=== PATIENT | female | born 1960 | race Caucasian/White ===

== ENCOUNTER → 2017-02-01 | Outpatient (CLI) | payer BC ==
[~2017-02-01] MED LIST: ATEN-173 PO; CETI10TA10 PO; CHOL100010 PO; ESTR1CRE; IBUP200C14 PO; LEVO88TA3 PO; LIOT5TAB9 PO; LSN5 PO; MULTTAB58 PO
--- NOTE | 2017-02-04 15:02 | MAMMOGRAPHY REPORT ---
BILATERAL DIGITAL SCREENING MAMMOGRAM TOMOSYNTHESIS WITH CAD: 02/01/2017 CLINICAL HISTORY: Routine screening. Patient has no complaints. TECHNIQUE: Breast tomosynthesis in addition to standard 2D mammography was performed. Current study was also evaluated with a Computer Aided Detection (CAD) system. COMPARISON: Comparison is made to exams dated: 02/01/2016 mammogram, 01/26/2015 mammogram, 01/21/2014 mammogram, 01/19/2013 mammogram, 01/14/2012 mammogram, and 01/03/2011 mammogram - [facility]. BREAST COMPOSITION: The tissue of both breasts is extremely dense, which lowers the sensitivity of m ammography. FINDINGS: No suspicious masses, calcifications, or areas of architectural distortion are noted in ei ther breast. There has been no significant interval change compared to prior exams. IMPRESSION: ACR BI-RADS CATEGORY 1: NEGATIVE There is no mammographic evidence of malignancy. A 1 year screening mammogram is recommended. The pa tient will receive written notification of the results. Approximately 10% of breast cancers are not detected with mammography. A negative mammographic report should not delay biopsy if a clinically suggestive mass is present. Yudelka Garza M.D. /:02/01/2017 16:52:37 District Plant Supervisor: Lata Solorio, [facility] letter sent: Normal 1/2 BI-RADS Code: ACR BI-RADS Category 1: Negative
== END | disposition home or self-care (01) ==
LOC: C.MAMM 07:24
PROVIDERS: ATTEND Family Medicine
DX: Z12.31 Encounter for screening mammogram for malignant neoplasm of breast (principal)

== ENCOUNTER 2023-01-18 17:15 | Inpatient (IN) ==
--- NOTE | 2023-01-18 17:23 | ED Triage Note ---
Date of Service January 18, 2023 History of Present Illness This patient was briefly evaluated while in triage. An abbreviated physical exam was performed. This patient is a 62-year-old Female who presents to the ED for evaluation of an abnormal heart beat. She has a history of cardiomyopathy, a-fib, ventricular tachycardia, and CHF. She has an ICD. She states she is having some generalized weakness, occasional chest pains in the center of her chest, and productive cough. Symptoms started earlier today. Physical Exam VITALS: Vitals are noted on the nurse's note and reviewed by myself. GENERAL: This is a 62-year-old female, in no acute distress, well-developed well-nourished. HEART: Tachycardic, irregular rhythm without murmurs gallops or rubs. LUNGS: Clear to auscultation bilaterally without wheezes, rales or rhonchi. NEURO: Patient was alert and oriented to person place and time. Initial orders for labs and / or imaging were placed and patient was placed in the waiting area until a bed is available. Please see further documentation for the full ED course.
[2023-01-18] MEDS ORDERED: MAGNESIUM SULFATE / D5W 1 GM/100 ML BAG IV STA (17:33)
[2023-01-18] MEDS ORDERED: SODIUM CHLORIDE 0.9% 500 ML IV ONE ×2 (17:33→18:43)
[2023-01-18] MEDS ORDERED: METOPROLOL TARTRATE 1 MG/ML VIAL IV STA ×2 (17:33→20:19)
[2023-01-18 18:20] LABS: Basophils # (auto) 0.03 K/uL (0.00-0.20); Basophils % (auto) 0.3 %; Eosinophils # (auto) 0.14 K/uL (0.00-0.50); Eosinophils % (auto) 1.5 %; Hematocrit (blood only) 45.2 % (37.0-47.0); Immature Granulocytes # (auto) 0.03 K/uL (0.01-0.20); Immature Granulocytes % (auto) 0.3 %; Lymphocytes # (auto) 2.19 K/uL (1.20-3.40); Lymphocytes % (auto) 23.4 %; Mean Corpuscular Hemoglobin 30.2 pg (25.0-34.0); Mean Corpuscular Hgb Conc 33.2 g/dL (32.0-36.0); Mean Corpuscular Volume 91.1 fL (80.0-100.0); Monocytes # (auto) 0.78 K/uL (0.11-0.59); Monocytes % (auto) 8.4 %; Neutrophils # (auto) 6.17 K/uL (1.40-6.50); Neutrophils % (auto) 66.1 %; Platelet Count 189 K/uL (130-400); RDW Coefficient of Variation 14.7 % (11.5-14.5); RDW Standard Deviation 49.6 fL (36.4-46.3); Red Blood Count 4.96 M/uL (4.20-5.40); White Blood Count 9.34 K/ul (4.8-10.8)
--- NOTE | 2023-01-18 18:33 | XRay Report ---
XR chest 1V portable CLINICAL HISTORY: Chest pain, arrhythmia TECHNIQUE: Single frontal radiograph of the chest was obtained. Comparison: Comparison is made to chest radiograph 02/28/2021 FINDINGS: Lines and tubes are stable. Cardiomegaly is noted. The lungs are clear. No evidence of pleural effusi on or pneumothorax. IMPRESSION: No acute chest disease. Cardiomegaly is noted. ACT 112: Negative or not required by law. Electronically signed by: Matias Lynch M.D. 01/18/2023 6:31 PM
[2023-01-18 18:39] LABS: Alanine Aminotransferase 20 U/L (7-52); Albumin Globulin Ratio 1.5 (0.9-2); Albumin Level 4.7 gm/dl (3.4-5.0); Alkaline Phosphatase 66 U/L (34-104); Bilirubin,Total 0.8 mg/dl (0.2-1.0); Blood Urea Nitrogen 15 mg/dl (6-23); Calcium 9.7 mg/dl (8.6-10.3); Carbon Dioxide 26 mmol/L (21-32); Chloride 102 mmol/L (98-107); Creatinine Clr Calc Pharmacy 64.2 ml/min; Est GFR (African American) 76.4 ml/min; Est GFR (Non-African American) 65.9 ml/min; Globulin 3.1 gm/dl (2.5-4.0); Glucose 109 mg/dl (70-99(Fasting)); Total Protein 7.8 gm/dl (6.0-8.3); Troponin I High Sensitivity 5.2 pg/ml (0-14)
[2023-01-18 18:46] LABS: Thyroid Stimulating Hormone 1.959 uIu/ml (0.300-4.500)
--- NOTE | 2023-01-18 18:46 | Emergency Department Note ---
Impression & Plan Atrial fibrillation with rapid ventricular response ED Provider Note NAME: SARAH BELTRAN AGE: 62 SEX: F : 1960 ARRIVES VIA: Walk-In INFORMANT: Patient, ED PROVIDER(S): Javier Rodriguez DO CHIEF COMPLAINT: Palpitations HPI: The patient is a 62-year-old female who presented to the emergency department for an evaluation of palpitations. The patient noted palpitations over the last few days intermittently but they became constant today. She has a history of paroxysmal atrial fibrillation. The patient denies having any chest pain or difficulty breathing at this time. She has been compliant with her outpatient medications which does include an anticoagulant. The patient denies having any headaches. She has had no leg swelling. ROS: See above HPI for pertinent positives & negatives. A total of 10 systems reviewed and were otherwise negative. PAST MEDICAL HISTORY: See Below PAST SURGICAL HISTORY: See Below FAMILY HISTORY: See Below SOCIAL HISTORY: See Below HOME MEDICATIONS: See Below ALLERGIES: See Below VITALS: See Below PHYSICAL EXAMINATION: GENERAL: Patient is awake alert in no acute distress patient is resting comfortably and showing no signs of anxiety EYES: The conjunctivae are clear. The pupils are round and reactive. EARS, NOSE, MOUTH AND THROAT: The nose is without any evidence of any deformity. Mucous membranes are moist. Tongue is midline. NECK: The neck is nontender and supple. RESPIRATORY: Normal respiratory effort is noted there is no evidence of wheezing rhonchi or rales CARDIOVASCULAR: Tachycardic and irregular heart sounds were noted to auscultation. There is no definite murmur. GASTROINTESTINAL: The abdomen is soft. Abdomen is nontender. MUSCULOSKELETAL/EXTREMITIES: There is no evidence of gross deformity full range of motion is noted in the hips and shoulders. SKIN: There is no obvious evidence of any rash. There are no petechiae, pallor or cyanosis noted. NEUROLOGIC: Patient is awake alert and oriented x3 MEDICAL DECISION MAKING: The patient is a 62-year-old female who presented to the emergency department for an evaluation of palpitations. The patient has a history of atrial fibrillation which is paroxysmal. The patient is on a blood thinner. She also takes rate control medications including metoprolol. The patient states that she has been compliant with her outpatient medication regimen. She was treated with IV fluids as well as IV Lopressor in the emergency department. Her heart r ate did improve. Her symptoms mildly improved. She did have her pacemaker interrogated. She was having episodes of atrial fibrillation with RVR. I discussed the patient's laboratory and radiographic studies with her. [facility] have a greed to evaluate the patient in the emergency department for further management Triage Nursing notes reviewed. Prior medical records reviewed. Pacemaker interrogation was reviewed. Vital Signs: reviewed and remarkable for tachycardia. Differential diagnosis: Premature contractions, electrolyte abnormality, cardiac dysrhythmia, thyroid dysfunction, pulmonary embolism, infection, gastrointestinal, as well as other pathologies. ER treatment provided: See below Diagnostics interpreted by me: ECG: EKG was obtained in the emergency department. My interpretation is atrial fibrillation with RVR at [address] segment abnormalities were noted. There were no PVCs noted. This was compared to a tracing from February 28, 2021. Paced rhythm has been replaced with atrial fibrillation. Cardiac Monitoring: An order was placed for continuous cardiac monitoring. The monitor shows a rate of 115 bpm with atrial fibrillation and RVR. Laboratory studies: As stated above and show below. Imaging studies: See below. Radiographic imaging was reviewed by myself Consultation(s): I discussed this case with Dr. Hamm who was [facility] ED COURSE: Procedures: none Critical Care: I have personally spent greater than 35 minutes of critical care time in the direct management of this patient. This includes bedside care, interpretation of diagnostic studies, and testing, discussion with consultants, patient, and family members, and other required patient management activities. This 35 minutes is in excess of all separately billable procedures. Past Med/Surg History Medical History Arthritis knees, lower back Atrial fibrillation currently on eliquis and statin Cardiomyopathy w/weakness in heart muscle; f/u db pool History of COVID-19 05/2021, home test (+) and clinic test (-), not hosp; runny nose, cough, hoarseness in voice, body aches, loss taste, chills, congestion>resolved Hx of migraines ocular Nausea and vomiting after administration of anesthetic agent Pacemaker pacemaker/defibrillator placed at [facility], 02/2021; f/u DB Pool Stroke 08/2019, in [place], "due to a blood clot">no residual symptoms>currently on statin Ventricular tachycardia Surgical History History of cardiac cath at age 37, no stents>"to see if I had a any problems with my heart due to the ventricular tachycardia and cardiomyopathy" History of endometrial ablation History of esophagogastroduodenoscopy (EGD) History of loop recorder placed to "see if I had A-Fib", placed at [facility]; removed when pacemaker placed 02/2021 History of surgery 08/2019, 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; hosp in [place] Hx of colonoscopy Hx of dilation and curettage Social History Smoking Status: Never smoker Second Hand Exposure: Yes (hx-as a child); Do You Dip or Chew Tobacco: No; Hx Alcohol Use: Yes Hx Substance Use: No Preferred Language: Belarusian Communication Ability: Effective Equipment Lead Required: No Beliefs That Will Affect Care: None Current Living Situation: Spouse Feels Safe at Home: Yes Assistive Devices: Contacts and Glasses Allergies Allergies Allergy/AdvReac Type Severity Reaction Status Date / Time Sulfa (Sulfonamide Allergy Mild HIVES Verified 06/07/22 08:24 Antibiotics) gluten Allergy Gastrointestinal Verified 06/07/22 08:24 Upset Home Meds Home Medications Medication Instructions Recorded Confirmed liothyronine 5 mcg tablet 5 mcg PO QAM 10/27/19 01/18/23 metoprolol succinate 100 mg 100 mg PO QAM 10/27/19 01/18/23 tablet,extended release 24 hr rosuvastatin 10 mg tablet (Crestor) 10 mg PO HS 10/27/19 01/18/23 apixaban 5 mg tablet (Eliquis) 5 mg PO BID 02/28/21 01/18/23 sacubitril 24 mg-valsartan 26 mg 1 tab PO BID 02/28/21 01/18/23 tablet (Entresto) cetirizine 10 mg tablet (Zyrtec) 10 mg PO HS 06/01/22 01/18/23 cholecalciferol (vitamin D3) 25 25 mcg PO QPM 06/01/22 01/18/23 mcg (1,000 unit) capsule (Vitamin D3) coenzyme Q10 100 mg capsule (Co 100 mg PO QAM 06/01/22 01/18/23 Q-10) levothyroxine 75 mcg tablet 75 mcg PO QAM 06/01/22 01/18/23 metoprolol succinate 25 mg 25 mg PO QPM 06/01/22 01/18/23 tablet,extended release 24 hr multivitamin 1 tab PO QPM 06/01/22 01/18/23 furosemide 20 mg tablet 20 mg PO QAM 01/18/23 01/18/23 spironolactone 25 mg tablet 12.5 mg PO . MON,WED,Sat01/18/23 01/18/23 triamcinolone acetonide 55 mcg 1 spray intranasal DAILY PRN 01/18/23 01/18/23 nasal spray aerosol (Nasacort) Allergy Symptoms Results & Data (ED) Vital Signs Vital Signs - 24 hr 01/18/23 17:21 01/18/23 17:41 01/18/23 18:00 Temperature 36.6 C Temperature Source Temporal Artery Scan Pulse Rate 150 H 122 H 142 H Respiratory Rate 18 Respiratory Effort / Characteristics Non-Labored Respiratory Depth Normal Respiratory Pattern Blood Pressure 120/108 H 105/80 Blood Pressure [Left Arm] Blood Pressure Mean 112 Blood Pressure Mean [Left Arm] Pulse Oximetry 99 Oxygen Delivery Method Room Air Sepsis Recent Fever Within 48 Hours No Sepsis New/Unexplained Change in Mental Status No Sepsis Action Taken by Nursing No Action Required 01/18/23 18:23 01/18/23 19:11 01/18/23 21:07 Temperature Temperature Source Pulse Rate 99 H 113 H Respiratory Rate 20 Respiratory Effort / Characteristics Non-Labored Spontaneous Respiratory Depth Normal Respiratory Pattern Regular Blood Pressure 109/75 Blood Pressure [Left Arm] 106/72 Blood Pressure Mean Blood Pressure Mean [Left Arm] 83 Pulse Oximetry 98 Oxygen Delivery Method Room Air Sepsis Recent Fever Within 48 Hours Sepsis New/Unexplained Change in Mental Status Sepsis Action Taken by [facility] Medications Current Medication List: was personally reviewed by me Laboratory Data Attestation: I reviewed the patient's lab results. 01/18/23 17:35 01/18/23 17:35 Lab Results 01/18/23 01/18/23 01/18/23 Range/Units 17:35 17:35 19:18 WBC 9.34 (4.8-10.8) K/ul RBC 4.96 (4.20-5.40) M/uL Hgb 15.0 (12.0-16.0) g/dl Hct 45.2 (37.0-47.0) % MCV 91.1 (80.0-100.0) fL MCH 30.2 (25.0-34.0) pg MCHC 33.2 (32.0-36.0) g/dL RDW Std Deviation 49.6 H (36.4-46.3) fL RDW Coeff of [place] 14.7 H (11.5-14.5) % Plt Count 189 (130-400) K/uL MPV 13.0 H (9.4-12.4) fL Immature Gran % (Auto) 0.3 % Neut % (Auto) 66.1 % Lymph % (Auto) 23.4 % [place] % (Auto) 8.4 % Eos % (Auto) 1.5 % Baso % (Auto) 0.3 % Neut # (Auto) 6.17 (1.40-6.50) K/uL Lymph # (Auto) 2.19 (1.20-3.40) K/uL [place] # (Auto) 0.78 H (0.11-0.59) K/uL Eos # (Auto) 0.14 (0.00-0.50) K/uL Baso # (Auto) 0.03 (0.00-0.20) K/uL Immature Gran # (Auto) 0.03 (0.01-0.20) K/uL Sodium TNP 135 L Potassium TNP 3.8 Chloride 102 (98-107) mmol/L Carbon Dioxide 26 (21-32) mmol/L Anion Gap TNP BUN 15 (6-23) mg/dl Creatinine 0.94 (0.6-1.2) mg/dl Est Cr Clr Drug Dosing 64.2 ml/min Est GFR ( Amer) 76.4 ml/min Est GFR (Non-Af Amer) 65.9 ml/min BUN/Creatinine Ratio 16.0 (10-20) Glucose 109 H (70-99(Fasting)) mg/dl Calcium 9.7 (8.6-10.3) mg/dl Magnesium TNP 2.4 Total Bilirubin 0.8 (0.2-1.0) mg/dl AST TNP 39 ALT 20 (7-52) U/L Alkaline Phosphatase 66 (34-104) U/L Troponin I High Sens 5.2 (0-14) pg/ml Total Protein 7.8 (6.0-8.3) gm/dl Albumin 4.7 (3.4-5.0) gm/dl Globulin 3.1 (2.5-4.0) gm/dl Albumin/Globulin Ratio 1.5 (0.9-2) TSH 1.959 (0.300-4.500) uIu/ml Administered Medications Discontinued Medications Sodium Chloride (Nss) 500 mls @ 999 mls/hr IV .Q31M ONE Stop: 01/18/23 18:03 Last Infusion: 01/18/23 18:23 Dose: 0 mls/hr Documented By: Admin: 01/18/23 17:43 Dose: 999 mls/hr Documented By: LIOR Magnesium Sulfate/Dextrose (Magnesium Sulfate / D5w) 1 gm in 100 mls @ 100 mls/hr IV NOW STA Stop: 01/18/23 18:32 Last Infusion: 01/18/23 21:09 Dose: 0 mls/hr Documented By: Admin: 01/18/23 17:43 Dose: 100 mls/hr Documented By: LIOR Sodium Chloride (Nss) 500 mls @ 999 mls/hr IV .Q31M ONE Stop: 01/18/23 19:13 Last Infusion: 01/18/23 21:09 Dose: 0 mls/hr Documented By: Admin: 01/18/23 19:07 Dose: 999 mls/hr Documented By: ROE Metoprolol Tartrate (Metoprolol Tartrate 1 Mg/Ml Vial) 5 mg IV NOW STA Stop: 01/18/23 17:34 Last Admin: 01/18/23 17:41 Dose: 5 mg Documented By: LIOR Metoprolol Tartrate (Metoprolol Tartrate 1 Mg/Ml Vial) 2.5 mg IV NOW STA Stop: 01/18/23 20:20 Last Admin: 01/18/23 21:07 Dose: 2.5 mg Documented By: MUNA Imaging Data Attestation: I personally reviewed and interpreted this imaging study as follows: My Impression: 1 view chest x-ray was obtained in the emergency department. My interpretation is no free air or definite infiltrate, final report below Radiologist's Impression: Chest X-Ray 01/18/23 17:23 XR chest 1V portable CLINICAL HISTORY: Chest pain, arrhythmia TECHNIQUE: Single frontal radiograph of the chest was obtained. Comparison: Comparison is made to chest radiograph 02/28/2021 FINDINGS: Lines and tubes are stable. Cardiomegaly is noted. The lungs are clear. No evidence of pleural effusion or pneumothorax. IMPRESSION: No acute chest disease. Cardiomegaly is noted. ACT 112: Negative or not required by law. Electronically signed by: Matias Lynch M.D. 01/18/2023 6:31 PM Discharge Plan Visit Data Chief Complaint: Tachycardia Stated Complaint: HEART RACING, WEAKNEESS ED Provider: Javier Rodriguez Discharge Problem: Atrial fibrillation with rapid ventricular response Patient Disposition: Being Evaluated by Hospitalist Forms Stand Alone Forms: My [facility] Prescriptions Prescriptions: No Action metoprolol succinate 100 mg Tablet Extended Release 24 Hr 100 mg PO QAM liothyronine 5 mcg Tablet 5 mcg PO QAM rosuvastatin [Crestor] 10 mg Tablet 10 mg PO HS multivitamin Tablet 1 tab PO QPM cetirizine [Zyrtec] 10 mg Tablet 10 mg PO HS levothyroxine 75 mcg Tablet 75 mcg PO QAM metoprolol succinate 25 mg Tablet Extended Release 24 Hr 25 mg PO QPM Patient Comments: after dinner cholecalciferol (vitamin D3) [Vitamin D3] 25 mcg (1,000 unit) Capsule 25 mcg PO QPM Patient Comments: w/lunch coenzyme Q10 [Co Q-10] 100 mg Capsule 100 mg PO QAM Eliquis 5 mg Tablet 5 mg PO BID Entresto 24-26 mg Tablet 1 tab PO BID spironolactone 25 mg tablet 12.5 mg PO . SAT,SAT,SAT Rx Instructions: saturday and saturday triamcinolone acetonide [Nasacort] 55 mcg Aerosol,[place] 1 spray INTRANASAL DAILY PRN (Reason: Allergy Symptoms) Rx Instructions: administer into each nostril furosemide 20 mg tablet 20 mg PO QAM Referrals Referrals: Linda English, [Primary Care Provider] -
[2023-01-18 20:23] LABS: Magnesium 2.4 mg/dl (1.7-2.4); Potassium 3.8 mmol/L (3.5-5.1)
--- NOTE | 2023-01-19 00:09 | History & Physical Report ---
Date of Service January 18, 2023 Assessment & Plan (1) Atrial fibrillation with rapid ventricular response: Plan: 62-year-old female with past medical history significant for hypothyroidism, allergic rhinitis, idiopathic cardiomyopathy, paroxysmal ventricular tachy cardia, paroxysmal atrial fibrillation, history of cryptogenic stroke, pulmonary hypertension, chronic systolic CHF, frequent PVCs, nonsustained ventricular tachycardia, celiac disease, eczema, history of allergic bilateral conjunctivitis, presents with palpitations and found to be in rapid A-fib. Rapid A-fib/a flutter History of paroxysmal atrial fibrillation Improved with IV Lopressor We will continue with home p.o. Lopressor IV Lopressor as needed Continue home Eliquis Monitoring telemetry Serial cardiac enzymes Echo Consult cardiology in a.m. Chronic systolic CHF Echo done November 2022 showed EF of less than 20% Follow echo Monitor for volume overload Continue home Lasix, spironolactone, Entresto, metoprolol succinate Cardiology consulted History of paroxysmal ventricular tachycardia History of frequent PVCs History of nonsustained ventricular tachycardia On metoprolol succinate We will follow labs Hypothyroidism On Synthyroid TSH is okay Hyperlipidemia On statin DVT prophylaxis On Eliquis Disposition Telemetry floor Full code History of Present Illness Chief Complaint: Rapid A-fib Primary Care Provider: Linda English DO 62-year-old female with past medical history significant for hypothyroidism, allergic rhinitis, idiopathic cardiomyopathy, paroxysmal ventricular tachycardia, paroxysmal atrial fibrillation, history of cryptogenic stroke, pulmonary hypertension, chronic systolic CHF, frequent PVCs, nonsustained ventricular tachycardia, celiac disease, eczema, history of allergic bilateral conjunctivitis, presents with palpitations and found to be in rapid A-fib. Patient says today she had for about 3 hours of palpitations. [place] somewhat dizzy. [place] tapping on her chest. No chest pain or shortness of breath. Ambulating okay. Today morning she had cough bringing some whitish phlegm. Denies any fevers. No headache. No blurred visions. Currently no runny nose or sore throat. No abdominal pain. Bowel movements are irregular. Micturating okay. Currently resting comfortably. Past medical history. As mentioned above Past surgical history. Colonoscopy. EGD. EGD with biopsy. Hysteroscopy and endometrial ablation. Implanted loop recorder. Social history. . No smoking. Alcohol occasional. No drug use. Family history. Mother had endometrial cancer. CHF. High cholesterol. Father had high cholesterol. Hypertension. Eczema. Diabetes. Arthritis. Sister has arthritis. Sister has celiac disease. Allergies Allergy/AdvReac Type Severity Reaction Status Date / Time Sulfa (Sulfonamide Allergy Mild HIVES Verified 06/07/22 08:24 Antibiotics) gluten Allergy Gastrointestinal Verified 06/07/22 08:24 Upset Home Medications Medication Instructions Recorded Confirmed Type liothyronine 5 mcg tablet 5 mcg PO QAM 10/27/19 01/18/23 History metoprolol succinate 100 mg 100 mg PO QAM 10/27/19 01/18/23 History tablet,extended release 24 hr rosuvastatin 10 mg tablet (Crestor) 10 mg PO HS 10/27/19 01/18/23 History apixaban 5 mg tablet (Eliquis) 5 mg PO BID 02/28/21 01/18/23 History sacubitril 24 mg-valsartan 26 mg 1 tab PO BID 02/28/21 01/18/23 History tablet (Entresto) cetirizine 10 mg tablet (Zyrtec) 10 mg PO HS 06/01/22 01/18/23 History cholecalciferol (vitamin D3) 25 25 mcg PO QPM 06/01/22 01/18/23 History mcg (1,000 unit) capsule (Vitamin D3) coenzyme Q10 100 mg capsule (Co 100 mg PO QAM 06/01/22 01/18/23 History Q-10) levothyroxine 75 mcg tablet 75 mcg PO QAM 06/01/22 01/18/23 History metoprolol succinate 25 mg 25 mg PO QPM 06/01/22 01/18/23 History tablet,extended release 24 hr multivitamin 1 tab PO QPM 06/01/22 01/18/23 History furosemide 20 mg tablet 20 mg PO QAM 01/18/23 01/18/23 History spironolactone 25 mg tablet 12.5 mg PO . MON,WED,FRI 01/18/23 01/18/23 History triamcinolone acetonide 55 mcg 1 spray intranasal DAILY PRN 01/18/23 01/18/23 History nasal spray aerosol (Nasacort) Allergy Symptoms Past Med/Surg History Medical History Arthritis knees, lower back Atrial fibrillation currently on eliquis and statin Cardiomyopathy w/weakness in heart muscle; f/u kayleigh db vazquez History of COVID-19 05/2021, home test (+) and clinic test (-), not hosp; runny nose, cough, hoarseness in voice, body aches, loss taste, chills, congestion>resolved Hx of migraines ocular Nausea and vomiting after administration of anesthetic agent Pacemaker pacemaker/defibrillator placed at [facility], 02/2021; f/u Kayleigh DB Vazquez Stroke 08/2019, in [place], "due to a blood clot">no residual symptoms>currently on statin Ventricular tachycardia Surgical History History of cardiac cath at age 37, no stents>"to see if I had a any problems with my heart due to the ventricular tachycardia and cardiomyopathy" History of endometrial ablation History of esophagogastroduodenoscopy (EGD) History of loop recorder placed to "see if I had A-Fib", placed at [facility]; removed when pacemaker placed 02/2021 History of surgery 08/2019, 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; hosp in [place] Hx of colonoscopy Hx of dilation and curettage Social History Smoking Status: Never smoker Second Hand Exposure: Yes (hx-as a child); Do You Dip or Chew Tobacco: No; Hx Alcohol Use: Yes Hx Substance Use: No Preferred Language: Irish Communication Ability: Effective Ground Worker Required: No Beliefs That Will Affect Care: None Current Living Situation: Spouse Other Information That Helps Us Care for You: No Feels Safe at Home: Yes Safety Concerns: Feels Safe At This Time Assistive Devices: None Review of Systems Review of Systems: All systems reviewed & are unremarkable except as noted in HPI & below Physical Exam Physical Exam: General- Not in distress. Head- atraumatic Eyes- PERRL. ENT- oropharynx clear Neck- supple, no JVD. Lungs- clear to auscultation mild bibasilar crackles, no wheezing Heart- irregular rhythm;tachycardia no murmur, no gallop. Abdomen- normal bowel sounds, soft, nontender, no distension Extremities- no pretibial edema, no erythema seen. Neuro- alert, oriented x 3; PERRL, EOMI; no facial palsy; no dysarthria;moves extremities. Skin- warm & dry Results & Data Results & Data Vital Signs (Past 12 Hours) Vital Signs Temp Pulse Pulse Resp BP BP Pulse Ox 01/18/23 22:23 83 16 109/72 95 01/18/23 21:59 104 H 01/18/23 21:07 113 H 109/75 01/18/23 19:11 20 106/72 98 01/18/23 18:23 99 H 01/18/23 18:00 142 H 01/18/23 17:41 122 H 105/80 01/18/23 17:21 36.6 C 150 H 18 120/108 H 99 O2 Del Method 01/18/23 22:23 Room Air 01/18/23 21:59 01/18/23 21:07 01/18/23 19:11 Room Air 01/18/23 18:23 01/18/23 18:00 01/18/23 17:41 01/18/23 17:21 Room Air Diagnostic Findings Laboratory Results WBC 9.34 K/ul (4.8-10.8) 01/18/23 17:35 RBC 4.96 M/uL (4.20-5.40) 01/18/23 17:35 Hgb 15.0 g/dl (12.0-16.0) 01/18/23 17:35 Hct 45.2 % (37.0-47.0) 01/18/23 17:35 MCV 91.1 fL (80.0-100.0) 01/18/23 17:35 MCH 30.2 pg (25.0-34.0) 01/18/23 17:35 MCHC 33.2 g/dL (32.0-36.0) 01/18/23 17:35 RDW Std Deviation 49.6 fL (36.4-46.3) H 01/18/23 17:35 RDW Coeff of [place] 14.7 % (11.5-14.5) H 01/18/23 17:35 Plt Count 189 K/uL (130-400) 01/18/23 17:35 MPV 13.0 fL (9.4-12.4) H 01/18/23 17:35 Immature Gran % (Auto) 0.3 % 01/18/23 17:35 Neut % (Auto) 66.1 % 01/18/23 17:35 Lymph % (Auto) 23.4 % 01/18/23 17:35 [place] % (Auto) 8.4 % 01/18/23 17:35 Eos % (Auto) 1.5 % 01/18/23 17:35 Baso % (Auto) 0.3 % 01/18/23 17:35 Neut # (Auto) 6.17 K/uL (1.40-6.50) 01/18/23 17:35 Lymph # (Auto) 2.19 K/uL (1.20-3.40) 01/18/23 17:35 [place] # (Auto) 0.78 K/uL (0.11-0.59) H 01/18/23 17:35 Eos # (Auto) 0.14 K/uL (0.00-0.50) 01/18/23 17:35 Baso # (Auto) 0.03 K/uL (0.00-0.20) 01/18/23 17:35 Immature Gran # (Auto) 0.03 K/uL (0.01-0.20) 01/18/23 17:35 Sodium 135 mmol/L (136-145) L 01/18/23 19:18 Potassium 3.8 mmol/L (3.5-5.1) 01/18/23 19:18 Chloride 102 mmol/L (98-107) 01/18/23 17:35 Carbon Dioxide 26 mmol/L (21-32) 01/18/23 17:35 Anion Gap TNP 01/18/23 17:35 BUN 15 mg/dl (6-23) 01/18/23 17:35 Creatinine 0.94 mg/dl (0.6-1.2) 01/18/23 17:35 Est Cr Clr Drug Dosing 64.2 ml/min 01/18/23 17:35 Est GFR ( Amer) 76.4 ml/min 01/18/23 17:35 Est GFR (Non-Af Amer) 65.9 ml/min 01/18/23 17:35 BUN/Creatinine Ratio 16.0 (10-20) 01/18/23 17:35 Glucose 109 mg/dl (70-99(Fasting)) H 01/18/23 17:35 Calcium 9.7 mg/dl (8.6-10.3) 01/18/23 17:35 Magnesium 2.4 mg/dl (1.7-2.4) 01/18/23 19:18 Total Bilirubin 0.8 mg/dl (0.2-1.0) 01/18/23 17:35 AST 39 U/L (13-39) 01/18/23 19:18 ALT 20 U/L (7-52) 01/18/23 17:35 Alkaline Phosphatase 66 U/L (34-104) 01/18/23 17:35 Troponin I High Sens 5.2 pg/ml (0-14) 01/18/23 17:35 Total Protein 7.8 gm/dl (6.0-8.3) 01/18/23 17:35 Albumin 4.7 gm/dl (3.4-5.0) 01/18/23 17:35 Globulin 3.1 gm/dl (2.5-4.0) 01/18/23 17:35 Albumin/Globulin Ratio 1.5 (0.9-2) 01/18/23 17:35 TSH 1.959 uIu/ml (0.300-4.500) 01/18/23 17:35 Impressions Chest X-Ray 01/18/23 17:23 XR chest 1V portable CLINICAL HISTORY: Chest pain, arrhythmia TECHNIQUE: Single frontal radiograph of the chest was obtained. Comparison: Comparison is made to chest radiograph 02/28/2021 FINDINGS: Lines and tubes are stable. Cardiomegaly is noted. The lungs are clear. No evidence of pleural effusion or pneumothorax. IMPRESSION: No acute chest disease. Cardiomegaly is noted. ACT 112: Negative or not required by law. Electronically signed by: Matias Lynch M.D. 01/18/2023 6:31 PM ECG Additional Comments: A flutter with variable AV block with PVCs at a rate of 144. Left axis deviation. Code Status & VTE Plan VTE Prophylaxis Plan VTE Prophylaxis will be ordered: Yes
[2023-01-19] MEDS ORDERED: POLYETHYLENE (MIRALAX) 17 GM PACK PO PRN (01:05)
[2023-01-19] MEDS ORDERED: ACETAMINOPHEN 325 MG TAB PO PRN (01:05)
[2023-01-19] MEDS ORDERED: NITROGLYCERIN SL 0.4 MG/TAB TAB SL PRN (01:05)
[2023-01-19] MEDS ORDERED: METOPROLOL TARTRATE 1 MG/ML VIAL IV PRN (01:05)
[2023-01-19] MEDS ORDERED: FLUTICASONE PROPIONATE NA SPR 16 GM BTL PRN (02:14)
[2023-01-19] MEDS: LIOTHYRONINE SODIUM 5 MCG TAB PO SCH (05:20)
[2023-01-19] MEDS: LEVOTHYROXINE SODIUM 75 MCG TABLET PO SCH (05:20)
[2023-01-19 06:33] LABS: Basophils # (auto) 0.02 K/uL (0.00-0.20); Basophils % (auto) 0.4 %; Eosinophils # (auto) 0.09 K/uL (0.00-0.50); Eosinophils % (auto) 1.7 %; Hematocrit (blood only) 38.4 % (37.0-47.0); Hemoglobin 12.7 g/dl (12.0-16.0); Immature Granulocytes # (auto) 0.01 K/uL (0.01-0.20); Immature Granulocytes % (auto) 0.2 %; Lymphocytes # (auto) 1.48 K/uL (1.20-3.40); Lymphocytes % (auto) 27.7 %; Mean Corpuscular Hemoglobin 30.2 pg (25.0-34.0); Mean Corpuscular Hgb Conc 33.1 g/dL (32.0-36.0); Mean Corpuscular Volume 91.2 fL (80.0-100.0); Monocytes # (auto) 0.49 K/uL (0.11-0.59); Monocytes % (auto) 9.2 %; Neutrophils # (auto) 3.25 K/uL (1.40-6.50); Neutrophils % (auto) 60.8 %; Platelet Count 144 K/uL (130-400); RDW Coefficient of Variation 14.9 % (11.5-14.5); RDW Standard Deviation 49.9 fL (36.4-46.3); Red Blood Count 4.21 M/uL (4.20-5.40); White Blood Count 5.34 K/ul (4.8-10.8)
[2023-01-19 06:50] LABS: BUN Creatinine Ratio 14.1 (10-20); Calcium 8.6 mg/dl (8.6-10.3); Creatinine Clr Calc Pharmacy 77.4 ml/min; Est GFR (African American) 95.8 ml/min; Est GFR (Non-African American) 82.6 ml/min; Magnesium 2.2 mg/dl (1.7-2.4); Potassium 3.9 mmol/L (3.5-5.1)
[2023-01-19 06:56] LABS: Troponin I High Sensitivity 7.1 pg/ml (0-14)
--- NOTE | 2023-01-19 07:40 | Electrocardiogram Report ---
Test Reason : Blood Pressure : / mmHG Vent. Rate : 144 BPM Atrial Rate : 366 BPM P-R Int : 000 ms QRS Dur : 090 ms QT Int : 308 ms P-R-T Axes : 000 -34 093 degrees QTc Int : 476 ms Likely atrial fibrillation Left axis deviation Poor R wave progression, consider anterior NC vs. lead placement vs. LVH Abnormal ECG When compared with ECG of 28-FEB-2021 13:39, Atrial fibrillation has replaced Electronic atrial pacemaker Vent. rate has increased BY 91 BPM QRS axis Shifted left Confirmed by Nathaniel Warner ([id number]) on 01/19/2023 7:40:31 AM Referred By: REFERRED SELF Confirmed By:Oswaldo Warner
--- NOTE | 2023-01-19 07:52 | Electrocardiogram Report ---
Test Reason : Blood Pressure : / mmHG Vent. Rate : 100 BPM Atrial Rate : 100 BPM P-R Int : 192 ms QRS Dur : 088 ms QT Int : 368 ms P-R-T Axes : 034 -45 083 degrees QTc Int : 474 ms Sinus rhythm with Premature atrial complexes Possible Left atrial enlargement Left anterior fascicular block Nonspecific ST abnormality Abnormal ECG When compared with ECG of 18-JAN-2023 17:30, (unconfirmed) Sinus rhythm has replaced likely atrial fibrillation ST no longer elevated in Inferior leads T wave amplitude has decreased in Inferior leads T wave inversion more evident in Lateral leads Confirmed by Nathaniel Warner ([id number]) on 01/19/2023 7:51:50 AM Referred By: REFERRED SELF Confirmed By:Oswaldo Warner
[2023-01-19] MEDS ORDERED: NON-FORMULARY MEDICATION (Coenzyme Q10 [Co Q-10] 100 mg Capsule) PO SCH (09:00)
[2023-01-19] MEDS ORDERED: METOPROLOL SUCC 50MG EXT REL TAB PO SCH (09:00)
[2023-01-19] MEDS ORDERED: FUROSEMIDE 20 MG TAB PO SCH (09:00)
[2023-01-19] MEDS: APIXABAN 5 MG TABLET PO SCH ×2 (09:07→21:05)
[2023-01-19] MEDS: VALSARTAN/SACUBITRIL 26/24MG TAB PO SCH ×3 (11:10→21:05)
--- NOTE | 2023-01-19 11:20 | Cardiology Consultation ---
Date of Consultation January 19, 2023 Assessment & Plan (1) Atrial fibrillation with rapid ventricular response: (2) Acute on chronic heart failure with reduced ejection fraction and diastolic dysfunction: (3) Frequent PVCs: Plan Complex 62-year-old female presents with paroxysmal atrial fibrillation with rapid ventricular response. Recent echocardiogram demonstrating significant decline in left ventricular systolic function, LVEF < 20%. Previous echocardiogram dated 02/06/2021 reporting LVEF 20-24%. Patient did not tolerate atrial fibrillation with evidence of mild acute on chronic decompensated systolic heart failure. Additional concerns regarding frequent PVCs and decline in left ventricular systolic function. Discussed rhythm control strategy. Dofetilide versus amiodarone considered. Baseline QTc greater than 440ms which is a contraindication to dofetilide. Recommend oral amiodarone 200 mg 3 times daily. 20 mg IV Lasix x1 now. Titrate spironolactone to 25 mg daily. Reduce oral metoprolol succinate to 50 mg daily. Although patient carries history of nonischemic/idiopathic cardiomyopathy dating back many years, with recent decline in LV function a repeat ischemic evaluation is warranted. Consideration for outpatient Lexiscan nuclear stress test versus repeat cardiac catheterization as hospital course progresses. History of Present Illness Reason for Consultation: Rapid atrial fibrillation Requesting Physician: Dr. Hamm Attending Physician: Ariana Jean-Baptiste MD History of Present Illness 62-year-old female with a history of nonischemic cardiomyopathy paroxysmal atrial fibrillation, frequent PVCs, nonsustained ventricular tachycardia presented to the ER with palpitations. ECG demonstrating rapid atrial fibrillation. Recent echocardiogram performed in the [facility] system in the midst of a acute COVID-19 infection 12/12/2022 demonstrating a decline in LV systolic function with a left ventricular ejection fraction less than 20% and mild pulmonary hypertension. Defibrillator implantation March 03, [address] Cordon. Furosemide titrated to 20 mg daily on January 07 with addition of spironolactone 12.5 mg daily. Dose of spironolactone was subsequently reduced to 12.5 mg on Saturday, Saturday, and Fridays01/17/2023. Patient seen and examined at the bedside. Converted to sinus rhythm with PACs at approximately 12:40 PM. Reports abdominal bloating and isolate episode of orthopnea last month. Function capacity and exercise tolerance has declined. Intermittent pedal edema reported although improved since admission. Patient recently referred for electrophysiology follow-up due to frequent PVCs and worsening left ventricular systolic function. Allergies Allergy/AdvReac Type Severity Reaction Status Date / Time Sulfa (Sulfonamide Allergy Mild HIVES Verified 06/07/22 08:24 Antibiotics) gluten Allergy Gastrointestinal Verified 06/07/22 08:24 Upset Home Medications Medication Instructions Recorded Confirmed Type liothyronine 5 mcg tablet 5 mcg PO QAM 10/27/19 01/18/23 History metoprolol succinate 100 mg 100 mg PO QAM 10/27/19 01/18/23 History tablet,extended release 24 hr rosuvastatin 10 mg tablet (Crestor) 10 mg PO HS 10/27/19 01/18/23 History apixaban 5 mg tablet (Eliquis) 5 mg PO BID 02/28/21 01/18/23 History sacubitril 24 mg-valsartan 26 mg 1 tab PO BID 02/28/21 01/18/23 History tablet (Entresto) cetirizine 10 mg tablet (Zyrtec) 10 mg PO HS 06/01/22 01/18/23 History cholecalciferol (vitamin D3) 25 25 mcg PO QPM 06/01/22 01/18/23 History mcg (1,000 unit) capsule (Vitamin D3) coenzyme Q10 100 mg capsule (Co 100 mg PO QAM 06/01/22 01/18/23 History Q-10) levothyroxine 75 mcg tablet 75 mcg PO QAM 06/01/22 01/18/23 History metoprolol succinate 25 mg 25 mg PO QPM 06/01/22 01/18/23 History tablet,extended release 24 hr multivitamin 1 tab PO QPM 06/01/22 01/18/23 History furosemide 20 mg tablet 20 mg PO QAM 01/18/23 01/18/23 History spironolactone 25 mg tablet 12.5 mg PO . MON,WED,FRI 01/18/23 01/18/23 History triamcinolone acetonide 55 mcg 1 spray intranasal DAILY PRN 01/18/23 01/18/23 History nasal spray aerosol (Nasacort) Allergy Symptoms Patient History Medical History Arthritis knees, lower back Atrial fibrillation currently on eliquis and statin Cardiomyopathy w/weakness in heart muscle; f/u kayleigh db vazquez History of COVID-19 05/2021, home test (+) and clinic test (-), not hosp; runny nose, cough, hoarseness in voice, body aches, loss taste, chills, congestion>resolved Hx of migraines ocular Nausea and vomiting after administration of anesthetic agent Pacemaker pacemaker/defibrillator placed at [facility], 02/2021; f/u Kayleigh DB Vazquez Stroke 08/2019, in [place], "due to a blood clot">no residual symptoms>currently on statin Ventricular tachycardia Surgical History History of cardiac cath at age 37, no stents>"to see if I had a any problems with my heart due to the ventricular tachycardia and cardiomyopathy" History of endometrial ablation History of esophagogastroduodenoscopy (EGD) History of loop recorder placed to "see if I had A-Fib", placed at [facility]; removed when pacemaker placed 02/2021 History of surgery 08/2019, 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; hosp in [place] Hx of colonoscopy Hx of dilation and curettage Social History Smoking Status: Never smoker Second Hand Exposure: Yes (hx-as a child); Do You Dip or Chew Tobacco: No; Hx Alcohol Use: Yes Hx Substance Use: No Preferred Language: Haitian Communication Ability: Effective Commissioned Sales Associate Required: No Beliefs That Will Affect Care: None Current Living Situation: Spouse Other Information That Helps Us Care for You: No Feels Safe at Home: Yes Safety Concerns: Feels Safe At This Time Assistive Devices: None Review of Systems Review of Systems: All systems reviewed & are unremarkable except as noted in Subjective Physical Exam Constitutional: well nourished; no acute distress Respiratory: normal respiratory effort; no respiratory distress and no labored breathing Auscultation: + rales (Bases bilateral); no rhonchi and no wheezes Cardiovascular: Rate/Rhythm: regular rate and regular rhythm Heart Sounds: normal S1 and normal S2; no murmur Vessels: + JVD and radial pulses present Extremities: no edema Gastrointestinal (Abdomen): Inspection/Auscultation: normal bowel sounds; abdomen not distended Percussion/Palpation: abdomen soft; abdomen nontender, no guarding and abdomen not rigid Neurologic: CN's II-XI intact bilaterally and moves all extremities Results & Data Vital Signs (Past 12 Hours) Vital Signs Temp Pulse Pulse Resp BP Pulse Ox O2 Del Method 01/19/23 11:08 36.7 C 102 H 20 107/75 96 Room Air 01/19/23 09:17 95 H 97/63 L 01/19/23 07:28 36.8 C 91 H 18 93/63 L 97 Room Air 01/19/23 01:52 84 01/19/23 01:08 36.7 C 104 H 18 103/66 98 Room Air 01/19/23 00:39 97 H Room Air Laboratory Results Cardiac Enzymes 01/18/23 01/18/23 01/19/23 Range/Units 17:35 19:18 05:15 AST TNP 39 Troponin I High Sens 5.2 7.1 (0-14) pg/ml 01/19/23 Range/Units 10:54 AST Troponin I High Sens 8.2 (0-14) pg/ml CBC 01/18/23 01/19/23 Range/Units 17:35 05:15 WBC 9.34 5.34 (4.8-10.8) K/ul RBC 4.96 4.21 (4.20-5.40) M/uL Hgb 15.0 12.7 (12.0-16.0) g/dl Hct 45.2 38.4 (37.0-47.0) % Plt Count 189 144 (130-400) K/uL Neut # (Auto) 6.17 3.25 (1.40-6.50) K/uL Lymph # (Auto) 2.19 1.48 (1.20-3.40) K/uL [place] # (Auto) 0.78 H 0.49 (0.11-0.59) K/uL Eos # (Auto) 0.14 0.09 (0.00-0.50) K/uL Baso # (Auto) 0.03 0.02 (0.00-0.20) K/uL Comprehensive Metabolic Panel 01/18/23 01/18/23 01/19/23 Range/Units 17:35 19:18 05:15 Sodium TNP 135 L 140 Potassium TNP 3.8 3.9 Chloride 102 108 H (98-107) mmol/L Carbon Dioxide 26 26 (21-32) mmol/L BUN 15 11 (6-23) mg/dl Creatinine 0.94 0.78 (0.6-1.2) mg/dl Glucose 109 H 92 (70-99(Fasting)) mg/dl Calcium 9.7 8.6 (8.6-10.3) mg/dl AST TNP 39 ALT 20 (7-52) U/L Alkaline Phosphatase 66 (34-104) U/L Total Protein 7.8 (6.0-8.3) gm/dl Albumin 4.7 (3.4-5.0) gm/dl Intake and Output 01/18/23 01/19/23 01/19/23 22:59 06:59 14:59 Intake Total 1100 / 1100 Balance 1100 / 1100 Intake: IV 1100 / 1100 Magnesium Sulfate / D5w 1 gm In 100 / 100 100 ml @ 100 mls/hr IV NOW STA Rx#:[id number] Sodium Chloride 0.9% 500 ml @ 1000 / 1000 999 mls/hr IV .Q31M ONE Rx#: [id number] Other: Other Intake Source npo Weight 66.8 kg 70.2 kg Weight Measurement Method Chair Scale Built in [facility] Diagnostic Findings 2D echocardiogram report 12/12/2022: The left ventricular cavity size is severely enlarged. Diffuse left ventricular myocardial thinning is present. There is severe diffuse left ventricular hypokinesis. The qualitative LV ejection fraction is <20% (severely reduced). The left atrium is severely enlarged. The left ventricular diastolic function is severely abnormal (grade III). Mild mitral regurgitation is present. Mild pulmonary hypertension is present. The estimated pulmonary artery systolic pressure is 45 mm Hg. Compared to the report of the previous study dated 02/06/2021, the ejection fraction was estimated to be 20-24% at that time. Severe left ventricular chamber dilatation is now present. ECG Additional Comments: ECG: Sinus rhythm with premature atrial complexes, QTc 474 ms, nonspecific ST abnormality.
[2023-01-19] MEDS ORDERED: FUROSEMIDE INJ 20 MG/2 ML VIAL IV ONE (13:28)
[2023-01-19] MEDS ORDERED: AMIODARONE 200 MG TAB PO ONE (13:31)
--- NOTE | 2023-01-19 14:06 | Hospitalist Progress Note ---
Date of Service January 19, 2023 Assessment & Plan (1) Atrial fibrillation with rapid ventricular response: Plan: 62-year-old female with past medical history significant for hypothyroidism, allergic rhinitis, idiopathic cardiomyopathy, paroxysmal ventricular tachy cardia, paroxysmal atrial fibrillation, history of cryptogenic stroke, pulmonary hypertension, chronic systolic CHF, frequent PVCs, nonsustained ventricular tachycardia, celiac disease, eczema, history of allergic bilateral conjunctivitis, presents with palpitations and found to be in rapid A-fib. Rapid A-fib/a flutter History of paroxysmal atrial fibrillation Improved with IV Lopressor Continue with home p.o. Lopressor, IV Lopressor as needed Continue home Eliquis Echo with decrease in EF to <20% currently Telemetry monitoring Consult cardiology-appreciate recs Chronic systolic CHF Echo done November 2022 showed EF of less than 20% Appreciate cardiology recs: -started on amiodarone -Given Lasix -increased dose of spironolactone to 25mg daily -decreased dose of metoprolol to 100mg daily Hypotension Pt currently hypotensive Cardiology holding AM metoprolol on 01/20 History of paroxysmal ventricular tachycardia History of frequent PVCs History of nonsustained ventricular tachycardia On metoprolol succinate as above Hypothyroidism Continue home thyroid meds Stable Hyperlipidemia On statin DVT prophylaxis:On Eliquis Diet: Gluten free, HH CODE STATUS: Full code Dispo: PT/OT orders placed, but likely home at discharge Admission and Anticipated Discharge Date Admission Date: January 18, 2023 Subjective Pt seen in the AM with at bedside. States that the cough was most bothersome, started a few months ago, producing foamy sputum. States that her hands are swollen and cannot take her rings off. Review of Systems Review of Systems: All systems reviewed & are unremarkable except as noted in Subjective Physical Exam Physical Exam: General: Alert, oriented. No acute distress Skin: No noted rashes or bruises Psych: Appropriate mood and affect Neuro: No gross deficits HEENT: NC/AT CV: Irregular rate and rhythm Resp: Breath sounds with some coarseness bilaterally, no increased effort of breathing. No crackles Abdomen: Soft, nontender, nondistended. Extremities: Edema noted in hands bilaterally Results & Data Results & Data Vital Signs (Past 12 Hours) Vital Signs Temp Pulse Resp BP Pulse Ox O2 Del Method 01/19/23 08:00 Room Air 01/19/23 11:08 36.7 C 102 H 20 107/75 96 Room Air 01/19/23 09:17 95 H 97/63 L 01/19/23 07:28 36.8 C 91 H 18 93/63 L 97 Room Air
--- NOTE | 2023-01-19 16:52 | Electrocardiogram Report ---
Test Reason : Blood Pressure : / mmHG Vent. Rate : 088 BPM Atrial Rate : 088 BPM P-R Int : 200 ms QRS Dur : 090 ms QT Int : 382 ms P-R-T Axes : 063 -55 097 degrees QTc Int : 462 ms Normal sinus rhythm Left anterior fascicular block possible Lateral infarct , age undetermined Nonspecific ST abnormality Abnormal ECG When compared with ECG of 19-JAN-2023 05:26, Premature atrial complexes are no longer Present Nonspecific T wave abnormality now evident in Inferior leads Confirmed by Nathaniel Warner ([id number]) on 01/19/2023 4:52:39 PM Referred By: REFERRED SELF Confirmed By:Oswaldo Warner
[2023-01-19] MEDS: AMIODARONE 200 MG TAB PO SCH (17:24)
[2023-01-19] MEDS ORDERED: METOPROLOL SUCC 25MG EXT REL TAB PO SCH (21:00)
[2023-01-19] MEDS: CETIRIZINE HCL 10 MG TABLET PO SCH (21:05)
[2023-01-19] MEDS: CHOLECALCIFEROL 1,000 UNITS 25 MCG TAB PO SCH (21:05)
[2023-01-19] MEDS: ROSUVASTATIN CALCIUM 10 MG TAB PO SCH (21:05)
[2023-01-19] MEDS: MULTIVITAMIN TAB PO SCH (21:05)
[2023-01-20] MEDS: LEVOTHYROXINE SODIUM 75 MCG TABLET PO SCH (05:36)
[2023-01-20] MEDS: LIOTHYRONINE SODIUM 5 MCG TAB PO SCH (05:36)
[2023-01-20 06:38] LABS: Basophils # (auto) 0.03 K/uL (0.00-0.20); Basophils % (auto) 0.4 %; Eosinophils # (auto) 0.12 K/uL (0.00-0.50); Eosinophils % (auto) 1.5 %; Hematocrit (blood only) 44.6 % (37.0-47.0); Hemoglobin 14.8 g/dl (12.0-16.0); Immature Granulocytes # (auto) 0.01 K/uL (0.01-0.20); Immature Granulocytes % (auto) 0.1 %; Lymphocytes # (auto) 1.71 K/uL (1.20-3.40); Lymphocytes % (auto) 21.8 %; Mean Corpuscular Hgb Conc 33.2 g/dL (32.0-36.0); Mean Corpuscular Volume 90.5 fL (80.0-100.0); Monocytes # (auto) 0.69 K/uL (0.11-0.59); Monocytes % (auto) 8.8 %; Neutrophils # (auto) 5.27 K/uL (1.40-6.50); Neutrophils % (auto) 67.4 %; Platelet Count 139 K/uL (130-400); RDW Coefficient of Variation 14.8 % (11.5-14.5); RDW Standard Deviation 49.2 fL (36.4-46.3); Red Blood Count 4.93 M/uL (4.20-5.40); White Blood Count 7.83 K/ul (4.8-10.8)
[2023-01-20 06:59] LABS: Albumin Globulin Ratio 1.6 (0.9-2); Albumin Level 3.9 gm/dl (3.4-5.0); BUN Creatinine Ratio 13.9 (10-20); Bilirubin,Total 1.2 mg/dl (0.2-1.0); Calcium 9.2 mg/dl (8.6-10.3); Creatinine Clr Calc Pharmacy 59.8 ml/min; Est GFR (African American) 70.1 ml/min; Est GFR (Non-African American) 60.5 ml/min; Globulin 2.5 gm/dl (2.5-4.0); Phosphorus 4.3 mg/dl (2.5-4.9); Potassium 4.2 mmol/L (3.5-5.1); Total Protein 6.4 gm/dl (6.0-8.3)
[2023-01-20] MEDS: VALSARTAN/SACUBITRIL 26/24MG TAB PO SCH ×2 (08:32→21:03)
[2023-01-20] MEDS: AMIODARONE 200 MG TAB PO SCH ×3 (08:32→17:07)
[2023-01-20] MEDS: APIXABAN 5 MG TABLET PO SCH ×2 (08:32→21:03)
[2023-01-20] MEDS: SPIRONOLACTONE 12.5 MG TAB PO SCH (08:32)
--- NOTE | 2023-01-20 08:48 | Cardiology Progress Note ---
Date of Service January 20, 2023 Assessment & Plan (1) Atrial fibrillation with rapid ventricular response: (2) Acute on chronic heart failure with reduced ejection fraction and diastolic dysfunction: (3) Frequent PVCs: Plan Complex 62-year-old female presents with paroxysmal atrial fibrillation with rapid ventricular response. Recent echocardiogram demonstrating significant decline in left ventricular systolic function, LVEF < 20%. Previous echocardiogram dated 02/06/2021 reporting LVEF 20-24%. Patient did not tolerate atrial fibrillation with evidence of mild acute on chronic decompensated systolic heart failure. Additional concerns regarding frequent PVCs and decline in left ventricular systolic function. Discussed rhythm control strategy. Dofetilide versus amiodarone considered. Baseline QTc greater than 440ms which is a contraindication to dofetilide. Continue oral amiodarone 200 mg 3 times daily. Reduce Toprol-XL to 50 mg daily. Continue spironolactone 12.5 mg daily, Entresto daily, and furosemide 3 days/week. Repeat basic metabolic panel in a.m. Daily ECG while loading amiodarone. Continue telemetry monitoring. Admission and Anticipated Discharge Date Admission Date: January 18, 2023 Subjective Patient seen and examined at the bedside. Persistent asymptomatic hypotension noted. Patient received evening medications. Diuresed more than 1 L last evening per discussion with nursing. Electrolytes and renal function stable. Denies lightheadedness or dizziness. No chest discomfort or unusual shortness of breath. Telemetry reveals sinus rhythm with PACs. Review of Systems Review of Systems: All systems reviewed & are unremarkable except as noted in Subjective Physical Exam Constitutional: well nourished; no acute distress Respiratory: normal respiratory effort; no respiratory distress and no labored breathing Auscultation: no rales, no rhonchi and no wheezes Cardiovascular: Rate/Rhythm: regular rate and regular rhythm Heart Sounds: normal S1 and normal S2; no murmur Vessels: radial pulses present; no JVD Extremities: no edema Gastrointestinal (Abdomen): Inspection/Auscultation: normal bowel sounds; abdomen not distended Percussion/Palpation: abdomen soft; abdomen nontender, no guarding and abdomen not rigid Neurologic: CN's II-XI intact bilaterally and moves all extremities Results & Data Vital Signs (Past 12 Hours) Vital Signs Temp Pulse Pulse Resp BP Pulse Ox O2 Del Method 01/20/23 07:15 36.5 C 88 18 89/59 L 98 Room Air 01/20/23 02:42 36.6 C 61 18 89/61 L 98 Room Air 01/19/23 22:54 86 01/19/23 22:44 36.8 C 81 18 89/59 L 97 Room Air Laboratory Results Cardiac Enzymes 01/19/23 01/20/23 Range/Units 10:54 05:57 AST 23 (13-39) U/L Troponin I High Sens 8.2 (0-14) pg/ml CBC 01/20/23 Range/Units 05:57 WBC 7.83 (4.8-10.8) K/ul RBC 4.93 (4.20-5.40) M/uL Hgb 14.8 (12.0-16.0) g/dl Hct 44.6 (37.0-47.0) % Plt Count 139 (130-400) K/uL Neut # (Auto) 5.27 (1.40-6.50) K/uL Lymph # (Auto) 1.71 (1.20-3.40) K/uL [place] # (Auto) 0.69 H (0.11-0.59) K/uL Eos # (Auto) 0.12 (0.00-0.50) K/uL Baso # (Auto) 0.03 (0.00-0.20) K/uL Comprehensive Metabolic Panel 01/20/23 Range/Units 05:57 Sodium 138 (136-145) mmol/L Potassium 4.2 (3.5-5.1) mmol/L Chloride 104 (98-107) mmol/L Carbon Dioxide 29 (21-32) mmol/L BUN 14 (6-23) mg/dl Creatinine 1.01 (0.6-1.2) mg/dl Glucose 100 H (70-99(Fasting)) mg/dl Calcium 9.2 (8.6-10.3) mg/dl AST 23 (13-39) U/L ALT 14 (7-52) U/L Alkaline Phosphatase 56 (34-104) U/L Total Protein 6.4 (6.0-8.3) gm/dl Albumin 3.9 (3.4-5.0) gm/dl Intake and Output 01/19/23 01/20/23 01/20/23 22:59 06:59 14:59 Intake Total 980 / 1230 250 / 1230 Output Total 1974 Balance / -745 - Intake: Oral 980 / 1230 250 / 1230 Output: Urine 1974 Other: Weight 70.2 kg Weight Measurement Method Built in [facility]
[2023-01-20] MEDS ORDERED: SPIRONOLACTONE 25 MG TAB PO SCH (09:00)
--- NOTE | 2023-01-20 10:29 | Hospitalist Progress Note ---
Date of Service January 20, 2023 Assessment & Plan (1) Atrial fibrillation with rapid ventricular response: Plan: 62-year-old female with past medical history significant for hypothyroidism, allergic rhinitis, idiopathic cardiomyopathy, paroxysmal ventricular tachy cardia, paroxysmal atrial fibrillation, history of cryptogenic stroke, pulmonary hypertension, chronic systolic CHF, frequent PVCs, nonsustained ventricular tachycardia, celiac disease, eczema, history of allergic bilateral conjunctivitis, presents with palpitations and found to be in rapid A-fib. Rapid A-fib/a flutter History of paroxysmal atrial fibrillation Improved with IV Lopressor On po Lopressor, IV Lopressor as needed Continue home Eliquis Echo with decrease in EF to <20% currently Telemetry monitoring Consult cardiology-appreciate recs -currently adjusting med doses in setting of hypotension Chronic systolic CHF Echo done November 2022 showed EF of less than 20% Appreciate cardiology recs: -started on amiodarone -Given Lasix -adjusting doses and schedule of spironolactone, entresto, lasix and metoprolol in the setting of hypotension Hypotension Pt currently hypotensive Cardiology adjusting medications as noted above History of paroxysmal ventricular tachycardia History of frequent PVCs History of nonsustained ventricular tachycardia On metoprolol succinate as above Hypothyroidism Continue home thyroid meds Stable Hyperlipidemia On statin DVT prophylaxis:On Eliquis Diet: Gluten free, CODE STATUS: Full code Dispo: PT/OT orders placed, but likely home at discharge Admission and Anticipated Discharge Date Admission Date: January 18, 2023 Subjective Pt seen in the AM, at bedside. Noted that she still had swelling but it was improving. Denied dizziness, chest pain or SOB. Acute episodes of hypotension overnight. Review of Systems Review of Systems: All systems reviewed & are unremarkable except as noted in Subjective Physical Exam Physical Exam: General: Alert, oriented. No acute distress Skin: No noted rashes or bruises Psych: Appropriate mood and affect Neuro: No gross deficits HEENT: NC/AT CV: Irregular rate and rhythm Resp: Breath sounds with some coarseness bilaterally, no increased effort of breathing. No crackles Abdomen: Soft, nontender, nondistended. Extremities: Edema noted in hands bilaterally, improved Results & Data Results & Data Vital Signs (Past 12 Hours) Vital Signs Temp Pulse Pulse Resp BP Pulse Ox O2 Del Method 01/20/23 10:04 84 01/20/23 09:55 Room Air 01/20/23 07:15 36.5 C 88 18 89/59 L 98 Room Air 01/20/23 02:42 36.6 C 61 18 89/61 L 98 Room Air 01/19/23 22:54 86 01/19/23 22:44 36.8 C 81 18 89/59 L 97 Room Air
[2023-01-20] MEDS: METOPROLOL SUCC 50MG EXT REL TAB PO SCH (11:31)
--- NOTE | 2023-01-20 12:44 | Electrocardiogram Report ---
Test Reason : Blood Pressure : / mmHG Vent. Rate : 083 BPM Atrial Rate : 083 BPM P-R Int : 190 ms QRS Dur : 092 ms QT Int : 394 ms P-R-T Axes : 032 038 164 degrees QTc Int : 462 ms Normal sinus rhythm with sinus arrhythmia Possible Left atrial enlargement Low voltage QRS Possible Inferior infarct , age undetermined Abnormal ECG When compared with ECG of 19-JAN-2023 14:14, Left anterior fascicular block is no longer Present Borderline criteria for Inferior infarct are now Present Confirmed by Nathaniel Warner ([id number]) on 01/20/2023 12:44:04 PM Referred By: REFERRED SELF Confirmed By:Oswaldo Warner
[2023-01-20] MEDS: MULTIVITAMIN TAB PO SCH (21:03)
[2023-01-20] MEDS: CHOLECALCIFEROL 1,000 UNITS 25 MCG TAB PO SCH (21:04)
[2023-01-20] MEDS: ROSUVASTATIN CALCIUM 10 MG TAB PO SCH (21:04)
[2023-01-20] MEDS: CETIRIZINE HCL 10 MG TABLET PO SCH (21:04)
[2023-01-21] MEDS: LEVOTHYROXINE SODIUM 75 MCG TABLET PO SCH (05:56)
[2023-01-21] MEDS: LIOTHYRONINE SODIUM 5 MCG TAB PO SCH (05:56)
[2023-01-21 06:36] LABS: Basophils # (auto) 0.04 K/uL (0.00-0.20); Basophils % (auto) 0.7 %; Eosinophils # (auto) 0.15 K/uL (0.00-0.50); Eosinophils % (auto) 2.5 %; Hematocrit (blood only) 39.6 % (37.0-47.0); Hemoglobin 13.7 g/dl (12.0-16.0); Immature Granulocytes # (auto) 0.01 K/uL (0.01-0.20); Immature Granulocytes % (auto) 0.2 %; Lymphocytes # (auto) 1.82 K/uL (1.20-3.40); Lymphocytes % (auto) 30.5 %; Mean Corpuscular Hemoglobin 30.2 pg (25.0-34.0); Mean Corpuscular Hgb Conc 34.6 g/dL (32.0-36.0); Mean Corpuscular Volume 87.4 fL (80.0-100.0); Mean Platelet Volume 12.8 fL (9.4-12.4); Monocytes # (auto) 0.63 K/uL (0.11-0.59); Monocytes % (auto) 10.6 %; Neutrophils # (auto) 3.32 K/uL (1.40-6.50); Neutrophils % (auto) 55.5 %; Platelet Count 164 K/uL (130-400); RDW Coefficient of Variation 14.6 % (11.5-14.5); RDW Standard Deviation 47.2 fL (36.4-46.3); Red Blood Count 4.53 M/uL (4.20-5.40); White Blood Count 5.97 K/ul (4.8-10.8)
[2023-01-21 07:06] LABS: Albumin Globulin Ratio 1.6 (0.9-2); Albumin Level 3.6 gm/dl (3.4-5.0); BUN Creatinine Ratio 20.2 (10-20); Bilirubin,Total 0.8 mg/dl (0.2-1.0); Calcium 8.8 mg/dl (8.6-10.3); Creatinine Clr Calc Pharmacy 64.2 ml/min; Est GFR (African American) 76.4 ml/min; Est GFR (Non-African American) 65.9 ml/min; Globulin 2.3 gm/dl (2.5-4.0); Magnesium 1.9 mg/dl (1.7-2.4); Phosphorus 4.7 mg/dl (2.5-4.9); Potassium 3.9 mmol/L (3.5-5.1); Total Protein 5.9 gm/dl (6.0-8.3)
[2023-01-21] MEDS: AMIODARONE 200 MG TAB PO SCH ×2 (08:27→12:11)
[2023-01-21] MEDS: METOPROLOL SUCC 50MG EXT REL TAB PO SCH (08:27)
[2023-01-21] MEDS: APIXABAN 5 MG TABLET PO SCH (08:28)
[2023-01-21] MEDS: VALSARTAN/SACUBITRIL 26/24MG TAB PO SCH (08:28)
[2023-01-21] MEDS: SPIRONOLACTONE 12.5 MG TAB PO SCH (08:28)
[2023-01-21] MEDS ORDERED: SPIRONOLACTONE 12.5 MG TAB PO SCH (09:00)
--- NOTE | 2023-01-21 11:16 | Cardiology Progress Note ---
Date of Service January 21, 2023 Assessment & Plan (1) Atrial fibrillation with rapid ventricular response: (2) Acute on chronic heart failure with reduced ejection fraction and diastolic dysfunction: (3) Frequent PVCs: Plan Complex 62-year-old female presents with paroxysmal atrial fibrillation with rapid ventricular response. Echocardiogram demonstrating significant decline in left ventricular systolic function, LVEF < 20%. Previous echocardiogram dated 02/06/2021 reporting LVEF 20-24%. Patient did not tolerate atrial fibrillation with evidence of mild acute on chronic decompensated systolic heart failure. Additional concerns regarding frequent PVCs and decline in left ventricular systolic function. Discussed rhythm control strategy. Dofetilide versus amiodarone considered. Baseline QTc greater than 440ms which is a contraindication to dofetilide. Reduce amiodarone to 200 mg twice daily. This may be reduced to 200 mg once daily in approximately 2 weeks. Repeat ECG today demonstrating normal QT interval. Continue Toprol-XL 50 mg in the a.m. (reduced from 125mg daily) Continue Entresto and daily spironolactone as ordered. Recommend oral furosemide 20 mg on Saturday, Saturday, and Saturday. Repeat basic metabolic panel in 1 week as outpatient. Discussed further ischemic evaluation. Patient agreeable to cardiac catheterization, however, received Eliquis this morning. Recommend holding Eliquis for 4 doses prior to procedure. She will be discharged home today with plans for cardiac catheterization on or Saturday. Instructed to hold a.m. medications prior to catheterization due to borderline resting hypotension. All questions answered to patient's satisfaction. I will facilitate appointment with advanced heart failure specialist at [facility] upon discharge. Admission and Anticipated Discharge Date Admission Date: January 18, 2023 Subjective Patient seen examined the bedside. Feeling well today. Denies chest pain or shortness of breath. Telemetry reveals PVCs and rare 3-4 beat salvos of nonsustained VT. Remains borderline hypotensive. No lightheadedness, dizziness, syncope, or near syncope. No recurrent atrial fibrillation over the past 48 hours. Review of Systems Review of Systems: All systems reviewed & are unremarkable except as noted in Subjective Physical Exam Constitutional: well nourished; no acute distress Respiratory: normal respiratory effort; no respiratory distress and no labored breathing Auscultation: no rales, no rhonchi and no wheezes Cardiovascular: Rate/Rhythm: regular rate and regular rhythm Heart Sounds: normal S1 and normal S2; no murmur Vessels: radial pulses present; no JVD Extremities: no edema Gastrointestinal (Abdomen): Inspection/Auscultation: normal bowel sounds; abdomen not distended Percussion/Palpation: abdomen soft; abdomen nontender, no guarding and abdomen not rigid Neurologic: CN's II-XI intact bilaterally and moves all extremities Results & Data Vital Signs (Past 12 Hours) Vital Signs Temp Pulse Pulse Resp BP BP Pulse Ox 01/21/23 08:15 92 H 01/21/23 07:22 36.6 C 88 19 92/62 L 97 01/21/23 03:00 36.6 C 80 16 85/53 L 97 01/21/23 01:00 Pulse Ox O2 Del Method O2 Del Method 01/21/23 08:15 01/21/23 07:22 Room Air 01/21/23 03:00 Room Air 01/21/23 01:00 97 Room Air Laboratory Results Cardiac Enzymes 01/21/23 Range/Units 05:54 AST 16 (13-39) U/L CBC 01/21/23 Range/Units 05:54 WBC 5.97 (4.8-10.8) K/ul RBC 4.53 (4.20-5.40) M/uL Hgb 13.7 (12.0-16.0) g/dl Hct 39.6 (37.0-47.0) % Plt Count 164 (130-400) K/uL Neut # (Auto) 3.32 (1.40-6.50) K/uL Lymph # (Auto) 1.82 (1.20-3.40) K/uL [place] # (Auto) 0.63 H (0.11-0.59) K/uL Eos # (Auto) 0.15 (0.00-0.50) K/uL Baso # (Auto) 0.04 (0.00-0.20) K/uL Comprehensive Metabolic Panel 01/21/23 Range/Units 05:54 Sodium 139 (136-145) mmol/L Potassium 3.9 (3.5-5.1) mmol/L Chloride 107 (98-107) mmol/L Carbon Dioxide 26 (21-32) mmol/L BUN 19 (6-23) mg/dl Creatinine 0.94 (0.6-1.2) mg/dl Glucose 91 (70-99(Fasting)) mg/dl Calcium 8.8 (8.6-10.3) mg/dl AST 16 (13-39) U/L ALT 10 (7-52) U/L Alkaline Phosphatase 48 (34-104) U/L Total Protein 5.9 L (6.0-8.3) gm/dl Albumin 3.6 (3.4-5.0) gm/dl Intake and Output 01/20/23 01/21/23 01/21/23 22:59 06:59 14:59 Intake Total 450 / 930 Output Total 1372024 250 / 2024 475 / 475 Balance -925 / -1095 -250 / -1095 -475 / -475 Intake: Oral 450 / 930 Output: Urine [id number] 250 / 2024 475 / 475 Other: Weight 67.5 kg Weight Measurement Method Built in [facility]
--- NOTE | 2023-01-21 13:16 | Electrocardiogram Report ---
Test Reason : Blood Pressure : / mmHG Vent. Rate : 087 BPM Atrial Rate : 087 BPM P-R Int : 202 ms QRS Dur : 092 ms QT Int : 382 ms P-R-T Axes : 037 046 -83 degrees QTc Int : 459 ms Normal sinus rhythm Possible Left atrial enlargement Poor R wave progression, consider anterior PR vs. lead placement vs. LVH Possible Inferior infarct (cited on or before 20-JAN-2023) Abnormal ECG When compared with ECG of 20-JAN-2023 05:36, No significant change was found Confirmed by Nathaniel Warner ([id number]) on 01/21/2023 1:15:48 PM Referred By: REFERRED SELF Confirmed By:Oswaldo Warner
--- NOTE | 2023-01-21 13:27 | Hospitalist Progress Note ---
Date of Service January 21, 2023 Assessment & Plan (1) Atrial fibrillation with rapid ventricular response: Plan: 62-year-old female with past medical history significant for hypothyroidism, allergic rhinitis, idiopathic cardiomyopathy, paroxysmal ventricular tachy cardia, paroxysmal atrial fibrillation, history of cryptogenic stroke, pulmonary hypertension, chronic systolic CHF, frequent PVCs, nonsustained ventricular tachycardia, celiac disease, eczema, history of allergic bilateral conjunctivitis, presents with palpitations and found to be in rapid A-fib. Rapid A-fib/a flutter History of paroxysmal atrial fibrillation Improved with IV Lopressor On po Lopressor, IV Lopressor as needed Continue home Eliquis Echo with decrease in EF to <20% currently Telemetry monitoring Consult cardiology-appreciate recs -currently adjusting med doses in setting of hypotension Presented with atrial fibrillation/flutter with rapid ventricular response Received intravenous amiodarone now controlled with oral amiodarone Rate is controlled and in sinus rhythm Has been feeling much better and will be discharged home this afternoon Chronic systolic CHF Echo done November 2022 showed EF of less than 20% Appreciate cardiology recs: -started on amiodarone -Given Lasix -adjusting doses and schedule of spironolactone, entresto, lasix and metoprolol in the setting of hypotension Will need a small dose of Lasix and spironolactone on discharge Hypotension Pt currently hypotensive Cardiology adjusting medications as noted above Blood pressure runs low at home as well without any significant symptoms Medications will be adjusted to keep the blood pressure at presyncopal state History of paroxysmal ventricular tachycardia History of frequent PVCs History of nonsustained ventricular tachycardia On metoprolol succinate as above We will continue current dose of metoprolol succinate on discharge Hypothyroidism Continue home thyroid meds Stable Hyperlipidemia On statin DVT prophylaxis:On Eliquis Diet: Gluten free, CODE STATUS: Full code Dispo: PT/OT orders placed, but likely home at discharge Strongly advised to continue the medication sent keep appointments with the providers Admission and Anticipated Discharge Date Admission Date: January 18, 2023 Subjective 01/21/2023 The patient was seen and examined in telemetry unit She has been running a low blood pressure of 85/59 without any symptoms with ambulation She denies any other cardiac symptoms and wants to be discharged Has been ambulating in the room without any symptoms of dizziness and/or palpitation or shortness of breath Review of Systems Review of Systems: All systems reviewed and are unremarkable except as noted below Physical Exam Physical Exam: Lying in bed comfortably Constitutional: + ill appearing and average body habitus Eyes: PERRL, conjunctivae normal, anicteric sclerae ENMT: external ear and nose normal, oropharynx normal Neck: trachea midline, no thyromegaly Respiratory: no respiratory distress Auscultation: + diminished lung sounds and + crackles (Minimal crackles at the bases) Cardiovascular: Rate/Rhythm: regular rate and regular rhythm; not tachycardic Heart Sounds: normal S1 and normal S2; no murmur Extremities: no edema Gastrointestinal (Abdomen): Inspection/Auscultation: normal bowel sounds; abdomen not distended Percussion/Palpation: abdomen soft; abdomen nontender Musculoskeletal: No acute arthritis involving any of the joint Neurologic: normal touch/pain/proprioception and moves all extremities; no focal motor deficits Psychiatric: A+Ox3, euthymic affect Lymphatic: no cervical or axillary lymphadenopathy Results & Data Results & Data Vital Signs (Past 12 Hours) Vital Signs Temp Pulse Pulse Resp BP BP Pulse Ox 01/21/23 11:29 36.5 C 82 19 85/59 L 99 01/21/23 08:15 92 H 01/21/23 07:22 36.6 C 88 19 92/62 L 97 01/21/23 03:00 36.6 C 80 16 85/53 L 97 O2 Del Method 01/21/23 11:29 Room Air 01/21/23 08:15 01/21/23 07:22 Room Air 01/21/23 03:00 Room Air Laboratory Results Short CBC 01/21/23 Range/Units 05:54 WBC 5.97 (4.8-10.8) K/ul Hgb 13.7 (12.0-16.0) g/dl Hct 39.6 (37.0-47.0) % Plt Count 164 (130-400) K/uL BMP 01/21/23 05:54 Sodium 139 Potassium 3.9 Chloride 107 Carbon Dioxide 26 BUN 19 Creatinine 0.94 Glucose 91 Calcium 8.8 Liver Function 01/21/23 Range/Units 05:54 Total Bilirubin 0.8 (0.2-1.0) mg/dl AST 16 (13-39) U/L ALT 10 (7-52) U/L Alkaline Phosphatase 48 (34-104) U/L Albumin 3.6 (3.4-5.0) gm/dl Medications Administered Current Inpatient Medications Acetaminophen (Acetaminophen 325 Mg Tab) 650 mg PO Q4H PRN PRN Reason: Pain or Fever Stop: 02/18/23 01:04 Amiodarone HCl (Amiodarone 200 Mg Tab) 200 mg PO TIDM YAZ Stop: 02/18/23 16:59 Last Admin: 01/21/23 12:11 Dose: 200 mg Apixaban (Apixaban 5 Mg Tablet) 5 mg PO BID YZA Stop: 02/18/23 08:59 Last Admin: 01/21/23 08:28 Dose: 5 mg Cetirizine HCl (Cetirizine Hcl 10 Mg Tablet) 10 mg PO HS [facility] Stop: 02/18/23 20:59 Last Admin: 01/20/23 21:04 Dose: 10 mg Fluticasone Propionate (Fluticasone Propionate Na Spr 16 Gm Btl) 2 sprays NA DAILY PRN PRN Reason: Allergy Symptoms Stop: 02/18/23 02:13 Levothyroxine Sodium (Levothyroxine Sodium 75 Mcg Tablet) 75 mcg PO DAILYBB [facility] Stop: 02/18/23 06:29 Last Admin: 01/21/23 05:56 Dose: 75 mcg Liothyronine Sodium (Liothyronine Sodium 5 Mcg Tab) 5 mcg PO DAILYBB [facility] Stop: 02/18/23 06:29 Last Admin: 01/21/23 05:56 Dose: 5 mcg Metoprolol Succinate (Metoprolol Succ 50mg Ext Rel Tab) 50 mg PO QAM [facility] Stop: 02/19/23 10:59 Last Admin: 01/21/23 08:27 Dose: 50 mg Metoprolol Tartrate (Metoprolol Tartrate 1 Mg/Ml Vial) 2.5 mg IV Q6 PRN PRN Reason: Tachycardia Stop: 02/18/23 01:04 Multivitamins (Multivitamin Tab) 1 tab PO QPM [facility] Stop: 02/18/23 20:59 Last Admin: 01/20/23 21:03 Dose: 1 tab Nitroglycerin (Nitroglycerin Sl 0.4 Mg/Tab Tab) 0.4 mg SL Q5M PRN PRN Reason: Chest Pain Stop: 02/18/23 01:04 Polyethylene Glycol (Polyethylene (Miralax) 17 Gm Pack) 17 gm PO DAILY PRN PRN Reason: Constipation Stop: 02/18/23 01:04 Rosuvastatin Calcium (Rosuvastatin Calcium 10 Mg Tab) 10 mg PO HS [facility] Stop: 02/18/23 20:59 Last Admin: 01/20/23 21:04 Dose: 10 mg Sacubitril/Valsartan (Valsartan/Sacubitril 26/24mg Tab) 1 tab PO BID [facility] Stop: 02/18/23 08:59 Last Admin: 01/21/23 08:28 Dose: 1 tab Spironolactone (Spironolactone 12.5 Mg Tab) 12.5 mg PO QAM [facility] Stop: 02/19/23 08:59 Last Admin: 01/21/23 08:28 Dose: 12.5 mg Vitamin D (Cholecalciferol 1,000 Units 25 Mcg Tab) 1,000 units PO QPM [facility] Stop: 02/18/23 20:59 Last Admin: 01/20/23 21:04 Dose: 1,000 units
[2023-01-21] MEDS ORDERED: METOPROLOL SUCC 25MG EXT REL TAB PO SCH (21:00)
--- NOTE | 2023-01-22 07:42 | Discharge Summary ---
Date of Service January 22, 2023 Admission HPI Per Admitting Provider 62-year-old female with past medical history significant for hypothyroidism, allergic rhinitis, idiopathic cardiomyopathy, paroxysmal ventricular tachycardia, paroxysmal atrial fibrillation, history of cryptogenic stroke, pulmonary hypertension, chronic systolic CHF, frequent PVCs, nonsustained ventricular tachycardia, celiac disease, eczema, history of allergic bilateral conjunctivitis, presents with palpitations and found to be in rapid A-fib. Patient says today she had for about 3 hours of palpitations. [place] somewhat dizzy. [place] tapping on her chest. No chest pain or shortness of breath. Ambulating okay. Today morning she had cough bringing some whitish phlegm. Denies any fevers. No headache. No blurred visions. Currently no runny nose or sore throat. No abdominal pain. Bowel movements are irregular. Micturating okay. Currently resting comfortably. Past medical history. As mentioned above Past surgical history. Colonoscopy. EGD. EGD with biopsy. Hysteroscopy and endometrial ablation. Implanted loop recorder. Social history. . No smoking. Alcohol occasional. No drug use. Family history. Mother had endometrial cancer. CHF. High cholesterol. Father had high cholesterol. Hypertension. Eczema. Diabetes. Arthritis. Sister has arthritis. Sister has celiac disease. Admission Exam Per Admitting Provider Physical Exam: General- Not in distress. Head- atraumatic Eyes- PERRL. ENT- oropharynx clear Neck- supple, no JVD. Lungs- clear to auscultation mild bibasilar crackles, no wheezing Heart- irregular rhythm;tachycardia no murmur, no gallop. Abdomen- normal bowel sounds, soft, nontender, no distension Extremities- no pretibial edema, no erythema seen. Neuro- alert, oriented x 3; PERRL, EOMI; no facial palsy; no dysarthria;moves extremities. Skin- warm & dry Principal Diagnosis A-fib with RVR-reverted to sinus rhythm, chronic systolic CHF, history of paroxysmal ventricular tachycardia, hypotension Discharge Exam Lying in bed comfortably Constitutional + ill appearing and average body habitus Eyes PERRL, conjunctivae normal, anicteric sclerae ENMT external ear and nose normal, oropharynx normal Neck trachea midline, no thyromegaly Respiratory no respiratory distress Auscultation: + diminished lung sounds and + crackles (Minimal crackles at the bases) Cardiovascular Rate/Rhythm: regular rate and regular rhythm; not tachycardic Heart Sounds: normal S1 and normal S2; no murmur Extremities: no edema Gastrointestinal (Abdomen) Inspection/Auscultation: normal bowel sounds; abdomen not distended Percussion/Palpation: abdomen soft; abdomen nontender Neurologic normal touch/pain/proprioception and moves all extremities; no focal motor deficits Psychiatric A+Ox3, euthymic affect Lymphatic no cervical or axillary lymphadenopathy Discharge Data Allergies Allergy/AdvReac Type Severity Reaction Status Date / Time Sulfa (Sulfonamide Allergy Mild HIVES Verified 06/07/22 08:24 Antibiotics) gluten Allergy Gastrointestinal Verified 06/07/22 08:24 Upset Consultations 01/18/23 20:26 ED Decision to Admit Stat 01/19/23 08:00 Consult Cardiology Routine Hospital Course (1) Atrial fibrillation with rapid ventricular response: 62-year-old female with past medical history significant for hypothyroidism, allergic rhinitis, idiopathic cardiomyopathy, paroxysmal ventricular tachycardia, paroxysmal atrial fibrillation, history of cryptogenic stroke, pulmonary hypertension, chronic systolic CHF, frequent PVCs, nonsustained ventricular tachycardia, celiac disease, eczema, history of allergic bilateral conjunctivitis, presents with palpitations and found to be in rapid A-fib. Rapid A-fib/a flutter History of paroxysmal atrial fibrillation Improved with IV Lopressor On po Lopressor, IV Lopressor as needed Continue home Eliquis Echo with decrease in EF to <20% currently Telemetry monitoring Consult cardiology-appreciate recs -currently adjusting med doses in setting of hypotension Presented with atrial fibrillation/flutter with rapid ventricular response Received intravenous amiodarone now controlled with oral amiodarone Rate is controlled and in sinus rhythm Has been feeling much better and will be discharged home this afternoon Chronic systolic CHF Echo done November 2022 showed EF of less than 20% Appreciate cardiology recs: -started on amiodarone -Given Lasix -adjusting doses and schedule of spironolactone, entresto, lasix and metoprolol in the setting of hypotension Will need a small dose of Lasix and spironolactone on discharge Hypotension Pt currently hypotensive Cardiology adjusting medications as noted above Blood pressure runs low at home as well without any significant symptoms Medications will be adjusted to keep the blood pressure at presyncopal state History of paroxysmal ventricular tachycardia History of frequent PVCs History of nonsustained ventricular tachycardia On metoprolol succinate as above We will continue current dose of metoprolol succinate on discharge Hypothyroidism Continue home thyroid meds Stable Hyperlipidemia On statin DVT prophylaxis:On Eliquis Diet: Gluten free, CODE STATUS: Full code Dispo: PT/OT orders placed, but likely home at discharge Strongly advised to continue the medication sent keep appointments with the providers Total Time Total Time Spent Total Time Spent (In Minutes): 40 minutes Discharge Plan Discharge Items Patient Disposition: Home - Self-Care Reason For Visit: RAPID A-FIB Discharge Diagnosis: A-fib with RVR-reverted to sinus rhythm, chronic systolic CHF, history of paroxysmal ventricular tachycardia, hypotension Condition on Discharge: Fair Activity: As commented below Activity Comment: Please take extra precautions to move around Non-emergency contact: Primary Care Provider Call non-emergency contact if: you have any medication questions and your symptoms worsen Follow-up/Referrals: Linda English DO [Primary Care Provider] - (Date & Time 01/24/2023 11:00 AM Provider Linda English DO Department [facility] ) Jean Marie Rivas DO [[employer]] - (The Cardiology office will contact you with follow up instructions/appointment.) Diet: Heart Healthy and Low Sodium (2gm) Fluids: 1800ml (7 cups) Addtl Attending Provider Instructions: Please take precautions to avoid falls Please take your medications as advised You are recommended to hold Eliquis for 4 doses prior to the procedure of cardiac cath And to hold any medications prior to the cardiac catheterization Please give appointments with healthcare providers Pending Studies at Discharge: No Stand-Alone Forms: My [facility], Smoking Cessation Medications and DC Order Prescriptions: New amiodarone 200 mg Tablet 200 mg PO BID Qty: 60 0RF metoprolol succinate 50 mg Tablet Extended Release 24 Hr 50 mg PO QAM Qty: 30 0RF furosemide [Lasix] 20 mg tablet 20 mg PO Q OTHER DAY Qty: 30 0RF Continued liothyronine 5 mcg Tablet 5 mcg PO QAM rosuvastatin [Crestor] 10 mg Tablet 10 mg PO HS multivitamin Tablet 1 tab PO QPM cetirizine [Zyrtec] 10 mg Tablet 10 mg PO HS levothyroxine 75 mcg Tablet 75 mcg PO QAM cholecalciferol (vitamin D3) [Vitamin D3] 25 mcg (1,000 unit) Capsule 25 mcg PO QPM Patient Comments: w/lunch coenzyme Q10 [Co Q-10] 100 mg Capsule 100 mg PO QAM Eliquis 5 mg Tablet 5 mg PO BID Entresto 24-26 mg Tablet 1 tab PO BID spironolactone 25 mg tablet 12.5 mg PO . SAT,SAT,SAT Rx Instructions: saturday and saturday triamcinolone acetonide [Nasacort] 55 mcg Aerosol,[place] 1 spray INTRANASAL DAILY PRN (Reason: Allergy Symptoms) Rx Instructions: administer into each nostril Discontinued metoprolol succinate 100 mg Tablet Extended Release 24 Hr 100 mg PO QAM metoprolol succinate 25 mg Tablet Extended Release 24 Hr 25 mg PO QPM Patient Comments: after dinner furosemide 20 mg tablet 20 mg PO QAM Discharge Orders: Discharge Order (Routine); Ordered 01/21/23 Ordered By: Alma Carmona/Other Patient Handouts: Amiodarone Oral Tablet Admission Data Admit Date/Time: 01/18/23 23:59 Attending Provider: Alma Friedman Admit Provider: Doug Hamm Primary Care Provider: Linda English Other Providers: Doug Hamm ; Jean Marie Rivas ; Alma Friedman Other Interventions: Discharge Summary Assessment (RN) Last Done: 01/21/23 13:48
== END 2023-01-21 14:41 | disposition home or self-care (01) | DRG 308 ==
LOC: ED 17:15 → SUATTDRO 23:59 → 4W 23:59